=== PATIENT | male | born 2000 | race Caucasian/White ===

== ENCOUNTER 2025-06-22 20:28 | Emergency (ER) | payer OTHER ==
[~2025-06-22] VITALS: Ht 170.2 cm; Wt 100.0 kg
[2025-06-22 20:30] VITALS: TEMP 98.2
[2025-06-22] MEDS: FAMOTIDINE 20 MG/2 ML VIAL IVP ONE (20:54)
[2025-06-22] MEDS: EPINEPHrine INJ 1 MG/ML 1ML AMP IM STA (20:55)
[2025-06-22] MEDS: diphenhydrAMINE 50 MG/ML VIAL IV ONE (20:55)
[2025-06-22 21:07] LABS: BASO # 0.0 10^3/uL (0.0-0.2); BASO % 0.5 % (0.0-1.0); EOS # 0.1 10^3/uL (0.0-0.5); EOS % 1.0 % (0.0-3.0); LYMPH # 3.2 10^3/uL (1.5-5.0); LYMPH % 41.3 % (24.0-44.0); MONO # 0.6 10^3/uL (0.0-0.8); MONO % 8.4 % (2.0-8.0); NEUTROPHILS # 3.7 10^3/uL (1.5-8.5); NEUTROPHILS % 48.4 % (36.0-66.0); PLATELET COUNT, AUTOMATED 233 10^3/uL (150-450)
[2025-06-22 21:30] VITALS: BP 120/68; O2SAT 99
[2025-06-22 21:41] LABS: CALCIUM LEVEL 9.3 MG/DL (8.5-10.1); CARBON DIOXIDE LEVEL 29 MMOL/L (20-31); CHLORIDE LEVEL 105 MMOL/L (98-107); CREATININE FOR GFR 0.97 MG/DL (0.70-1.30); GLOMERULAR FILTRATION RATE > 90.0 (>60); POTASSIUM SERUM 4.2 MMOL/L (3.5-5.1); SODIUM LEVEL 145 MMOL/L (136-145)
[2025-06-22] MEDS ORDERED: EPIP0.3I2 IM (23:31)
== END 2025-06-22 23:49 | disposition home or self-care (01) ==
LOC: M ED 20:28
DX: T78.40XA Allergy, unspecified, initial encounter (principal); I45.81 Long QT syndrome; Z91.018 Allergy to other foods; Z79.899 Other long term (current) drug therapy
CPT/HCPCS: 80048; 85025; 93005; 93041; 94760; 96372; 96374; 96375; 99284; J0166; J1200; J1308; J2919